=== PATIENT | female | born 1985 | race Caucasian/White ===

== ENCOUNTER 2016-08-30 21:52 | Emergency (ER) | payer OTHER ==
[2016-08-30] MEDS ORDERED: Albuterol 2.5 MG/3 ML NEB.SOL* (0.083%) INH ONE (22:08)
[2016-08-30] MEDS ORDERED: Ipratropium 0.5MG/2.5ML NEB* 0.5 MG/2.5 ML NEB.SOLN INH ONE (22:08)
[2016-08-30 22:26] VITALS: BP 144/70
[2016-08-30] MEDS ORDERED: predniSONE TAB* 20 MG PO ONE (23:25)
[2016-08-30] MEDS ORDERED: Amoxicillin/Clavulanate TAB* 875 MG PO ONE (23:26)
[2016-08-30] MEDS ORDERED: guaiFENesin/CODIEN 100MG-10MG* 5 ML UDC PO ONE (23:29)
--- NOTE | 2016-10-01 14:34 | UC ---
I, Taqueria,Sovel, scribed for Ally Taylor DO on 08/30/16 at 2319 . Cardiac HPI - HPI Summary HPI Summary: This 31 y/o female presents to ED for CP since 1 week ago. Pt also reports dyspnea, BERTRAND, cough, sinus congestion, rhinorrhea, sore throat, and chills. Negative abd pain, dysuria, or any other urinary symptoms. Cough makes the chest pain worse. Nebulizer treatment in [facility] made the CP better. Pt has not controlled her symptoms with any OTC symptoms. PMHx includes appy, ADHD, and . Pt is adopted and does not know her FHx. - History of Current Complaint Chief Complaint: UCRespiratory Stated Complaint: RESPIRATORY C/O Time Seen by Provider: 08/30/16 22:02 Hx Obtained From: Patient, Medical Records Onset/Duration: Lasting Weeks - 1 week ago, Still Present Initial Severity: Moderate Current Severity: Moderate Chest Pain Location: Diffuse Character: Tightness Aggravating: Deep Breaths Alleviating: Medication - albuterol, Upright Associated Signs & Symptoms: Positive: Chest Pain, Headaches, SOB, Cough - Risk Factors Pulmonary Embolism Risk Factors: Smoking Cardiac Risk Factors: Smoking AMI/ACS Risk Factors: Smoking - Allergy/Home Medications Allergies/Adverse Reactions: Allergies Allergy/AdvReac Type Severity Reaction Status Date / Time No Known Allergies Allergy Verified 08/30/16 22:20 PMH/Surg Hx/FS Hx/Imm Hx Previously Healthy: Yes Endocrine History Of: Denies: Thyroid Disease Cardiovascular History Of: Denies: Pacemaker/ICD, Congestive Heart Failure Respiratory History Of: Denies: COPD, Asthma GI/ History Of: Denies: Gastroesophageal Reflux, Ulcer, Renal Disease Neurological History Of: Denies: CVA, Dementia, Seizures Other History Of: Negative For: Anticoagulant Therapy - Surgical History Surgical History: Yes Surgery Procedure, Year, and Place: Appendectomy - Family History Known Family History: Positive: Unknown - Pt is adopted - Social History Alcohol Use: None Substance Use Type: None Smoking Status (MU): Light Every Day Tobacco Smoker Type: Cigarettes Amount Used/How Often: 1 pack every 3 days Length of Time of Smoking/Using Tobacco: started at age 15 Have You Smoked in the Last Year: Yes Household Exposure Type: Cigarettes Cessation Counseling: Patient Advised to Stop - Immunization History Most Recent Influenza Vaccination: 04/01/15 Most Recent Tetanus Shot: 07/01/15 Most Recent Pneumonia Vaccination: never Review of Systems Constitutional: Chills Skin: Negative Eyes: Negative ENT: Sore Throat, Nasal Discharge, Other - sinus congestion Respiratory: Shortness Of Breath, Cough Cardiovascular: Chest Pain Gastrointestinal: Negative Genitourinary: Negative Motor: Negative Neurovascular: Negative Musculoskeletal: Negative Neurological: Headache Psychological: Negative All Other Systems Reviewed And Are Negative: Yes Physical Exam Triage Information Reviewed: Yes Appearance: Well-Appearing, No Pain Distress, Well-Nourished Vital Signs: Initial Vital Signs Temp 99 F 08/30/16 22:21 Pulse 78 08/30/16 22:21 Resp 18 08/30/16 22:21 BP 144/70 08/30/16 22:21 Pulse Ox 99 08/30/16 22:21 Vital Signs Reviewed: Yes Eyes: Positive: Conjunctiva Clear. Negative: Discharge ENT: Positive: Hearing grossly normal, Pharynx normal, Nasal congestion, Nasal drainage, TMs normal. Negative: Tonsillar swelling, Muffled/hoarse voice Dental: Positive: Percussion Tenderness @ - right maxillary Neck: Positive: Supple, Nontender Respiratory: Positive: No respiratory distress, No accessory muscle use, Other: - Moderate wheezing Cardiovascular: Positive: RRR, No Murmur Musculoskeletal: Positive: Strength Intact Neurological: Positive: Alert, Muscle Tone Normal Psychological: Positive: Age Appropriate Behavior Skin Exam: Normal, Other - Warm, dry, color nml Re-Evaluation - Re-Evaluation First Eval Re-Evaluation Time: 23:30 Comment: Scattered wheezing at re-evaluation. - Clinical Impression Provider Diagnoses: sinusitis and bronchitis Discharge - Discharge Plan Condition: Stable Disposition: HOME Prescriptions: Albuterol HFA INHALER* [Ventolin HFA Inhaler*] 2 puff INH Q4H PRN #1 mdi PRN Reason: Sob/Wheezing Amoxicillin/Clavulanate TAB* [Augmentin TAB 875*] 875 mg PO BID #19 tab guaiFENesin ER TAB [Mucinex*] 600 mg PO BID PRN #1 box PRN Reason: Cough guaiFENesin/CODIEN 100MG-10MG* [Robitussin AC 100Mg-10Mg*] 5 - 10 ml PO BEDTIME PRN #100 udc MDD 10ml PRN Reason: Cough predniSONE TAB* [Deltasone TAB*] 40 mg PO DAILY #8 tab Patient Education Materials: Acute Bronchitis (ED), Sinusitis (ED) Forms: *Work Release Referrals: Sravanthi Siu MD [Primary Care Provider] - If Needed Additional Instructions: TRY USING THE NETTI POT IN THE MORNINGS DISCUSSED. YOU MUST ALWAYS USE CLEAN WATER. REMEMBER, POSTURE IS AN IMPORTANT FACTOR IN SINUS DRAINAGE. MOVE YOUR NECK, BREATHE. INHALED BRONCHODILATORS: You have received a prescription for an inhaled bronchodilator -- a medication which stimulates the airways in the lung to dilate. This improves the flow of air in asthma, bronchitis, and emphysema. These medicines have some similarity to adrenaline, and can cause similar side effects: shakiness, racing heart, and a sense of nervousness. These side effects decrease with time. Contact your doctor if these side effects are severe. Do not over-use the medicine. Too-frequent use of the inhaler may make it ineffective. Call your doctor if the inhaler is not controlling your symptoms at the prescribed doses. COUGH-SUPPRESSANT & EXPECTORANT MEDICATION: You are to use a cough medication as needed for relief of symptoms. This medicine is a combination of an expectorant (to make the mucous thinner and more easily "coughed up") and a cough suppressant (to reduce the frequency of coughing). The cough-suppressant medicine is related to narcotics. You may experience mild nausea and sleepiness. Some patients who are very sensitive to narcotics may have stomach pain from this medicine. Taking the medicine with food reduces these side effects. Do not drive or work with machinery until you know how this medicine affects you. The expectorant should have no side effects. Iodine-containing expectorants (such as organidin) should not be taken by persons with active thyroid disease unless approved by your doctor. Call the doctor if you develop shortness of breath, hives, rash, itching, lightheadedness, or severe nausea and vomiting. EXPECTORANT MEDICATION: An expectorant medicine has been prescribed. This type of drug makes mucous thinner, helping the sinuses, nose, and bronchial tubes to remain free of pus and mucous. Expectorants make a cough less severe and more comfortable, and help infected sinuses drain. In general, antihistamines defeat the purpose of the expectorant by making mucous thicker. They should be avoided unless specifically recommended by your physician. CORTICOID MEDICATION: You have been given a medicine of the cortisone class. This medication is used to control inflammation or allergy. It is usually only given for a short period of time, until the acute process subsides. There are usually no side effects from short-term use of cortisone-like medications. Some persons feel an increased sense of well-being and are not sleepy at bedtime. Long-term use of cortisone medications is best avoided, unless required for a severe condition. If your condition does not remit, or relapses after the course of corticosteroid medication, you should consult your physician. Contact the physician if you develop lightheadedness, black or tarry stools , swelling of the legs, or significant rapid change in weight. AUGMENTIN: Augmentin is a mixture of amoxicillin and clavulanate. Amoxicillin is a member of the penicillin family. It covers the germs likely to cause ear, bronchial, and urinary infections better than plain penicillin. The addition of clavulanate allows it to cover staph infections of the skin, as well as resistant cases of ear and sinus infections. Your physician has chosen Augmentin for you because of the special nature of your situation. Augmentin is best taken with meals. Nausea after taking the medication is rare, but can occur. Diarrhea can occur, particularly in small children. Vaginal yeast infections, and oral thrush in infants are also common. Contact your physician if these problems occur. Allergy to penicillins is common. If you have had an allergic reaction to any drug of the penicillin family, you should never take any other penicillin. Notify your doctor at once if you develop hives, shortness of breath, swelling, or faintness. ANY TIME YOU TAKE AN ANTIBIOTIC, IT IS IMPORTANT TO REPLENISH THE BODY'S BALANCE OF "GOOD" BACTERIA BY EATING HIGH QUALITY CULTURED FOOD SUCH YOGURT, SAURKRAUT OR VAZQUEZ CHI AND/OR TAKING A PROBIOTIC SUPPLEMENT. The documentation as recorded by the Taqueria hussein Soohyun accurately reflects the service I personally performed and the decisions made by , Ally Taylor DO.
== END 2016-08-30 23:50 | disposition home or self-care (01) ==
LOC: UCEAST 21:52
DX: J32.9 Chronic sinusitis, unspecified (principal); J40 Bronchitis, not specified as acute or chronic; F17.210 Nicotine dependence, cigarettes, uncomplicated
CPT/HCPCS: 99213; A9270-GY; G0463; J7512; J7644

== ENCOUNTER 2017-02-24 21:20 | Emergency (ER) | payer OTHER ==
[2017-02-24 21:26] VITALS: BP 139/72
--- NOTE | 2017-02-24 21:35 | UC ---
Lower Extremity/Ankle HPI - HPI Summary HPI Summary: 31 YEAR OLD FEMALE PRESENTS WITH COMPLAINS OF RIGHT ANKLE PAIN SECONDARY TO BLUNT TRAUMA. - History of Current Complaint Chief Complaint: UCLowerExtremity Stated Complaint: ANKLE INJ Time Seen by Provider: 02/24/17 21:28 Hx Obtained From: Patient Hx Last Menstrual Period: 1 WEEK AGO Onset/Duration: Sudden Onset Severity Initially: Severe Severity Currently: Severe Pain Scale Used: 0-10 Numeric - 8 Aggravating Factor(s): Standing Alleviating Factor(s): Rest, Elevation - Allergies/Home Medications Allergies/Adverse Reactions: Allergies Allergy/AdvReac Type Severity Reaction Status Date / Time No Known Allergies Allergy Verified 02/24/17 21:26 PMH/Surg Hx/FS Hx/Imm Hx Previously Healthy: Yes Other History Of: Negative For: Anticoagulant Therapy - Surgical History Surgical History: Yes Surgery Procedure, Year, and Place: Appendectomy, DENTAL EXTRACTIONS - Family History Known Family History: Positive: Unknown - Pt is adopted, Cardiac Disease, Hypertension - Social History Alcohol Use: None Substance Use Type: None Smoking Status (MU): Current Every Day Smoker Type: Cigarettes Amount Used/How Often: 1 pack every 3 days Length of Time of Smoking/Using Tobacco: started at age 15 Have You Smoked in the Last Year: Yes Household Exposure Type: Cigarettes - Immunization History Most Recent Influenza Vaccination: 04/01/15 Most Recent Tetanus Shot: 07/01/15 Most Recent Pneumonia Vaccination: never Review of Systems Constitutional: Negative Skin: Negative Eyes: Negative ENT: Negative Respiratory: Negative Cardiovascular: Negative Gastrointestinal: Negative Genitourinary: Negative Motor: Negative Neurovascular: Negative Musculoskeletal: Myalgia - RIGHT ANKLE PAIN, Other: Neurological: Negative Psychological: Negative All Other Systems Reviewed And Are Negative: Yes Physical Exam Triage Information Reviewed: Yes Vital Signs: Initial Vital Signs Temp 36.8 C 02/24/17 21:22 Pulse 74 02/24/17 21:22 Resp 16 02/24/17 21:22 BP 139/72 02/24/17 21:22 Pulse Ox 100 02/24/17 21:22 Eye Exam: Normal ENT Exam: Normal Dental Exam: Normal Neck exam: Normal Neck: Positive: 1 Respiratory Exam: Normal Cardiovascular Exam: Normal Abdominal Exam: Normal Musculoskeletal: Positive: Other: - RIGHT ANKLE PAIN Neurological Exam: Normal Psychological Exam: Normal Skin Exam: Normal Lower Extremity Course/Dx - Differential Dx/Diagnosis Provider Diagnoses: RIGHT ANKLE PAIN Discharge - Discharge Plan Condition: Stable Disposition: HOME Prescriptions: Meloxicam [Mobic] 7.5 mg PO BID PC #30 tab Patient Education Materials: Ankle Sprain (ED) Referrals: Sravanthi Siu MD [Primary Care Provider] - If Needed Elliot Patterson MD [Medical Doctor] -
--- NOTE | 2017-02-24 21:59 | RAD ---
INDICATION: Right ankle injury. TECHNIQUE: 3 views of the right ankle were obtained. FINDINGS: The bones are in normal alignment. No fracture is seen. Joint spaces appear maintained. IMPRESSION: NO EVIDENCE FOR FRACTURE.
== END 2017-02-24 22:06 | disposition home or self-care (01) ==
LOC: UCEAST 21:20
DX: M25.571 Pain in right ankle and joints of right foot (principal); F17.210 Nicotine dependence, cigarettes, uncomplicated
CPT/HCPCS: 99213; G0463

== ENCOUNTER 2017-08-10 10:49 | Emergency (ER) | payer OTHER ==
[2017-08-10 11:24] VITALS: BP 132/61
--- NOTE | 2017-08-10 12:05 | UC ---
Hand/Wrist HPI - HPI Summary HPI Summary: ACCIDENTALLY CLOSED RIGHT 3RD FINGER IN A DOOR A WEEK AGO. SINCE THEN HAS DEVELOPED PAIN, REDNESS, SWELLING AND DRAINAGE. STUCK A PIN IT IN 4 DAYS AGO AND SOME PUS CAME OUT BUT PT STATES IT LOOKS WORSE NOW. NO FEVER. - History Of Current Complaint Chief Complaint: UCUpperExtremity Stated Complaint: FINGER INJURY Time Seen by Provider: 08/10/17 11:49 Hx Obtained From: Patient Hx Last Menstrual Period: 07/07/18 Onset/Duration: Sudden Onset, Lasting Days, Still Present Severity Initially: Moderate Severity Currently: Moderate Pain Intensity: 4 Pain Scale Used: 0-10 Numeric Character Of Pain: Sharp, Aching Aggravating Factor(s): Movement Alleviating Factor(s): Ice Associated Signs And Symptoms: Positive: Swelling, Redness Related History: Dominant Hand Right - Allergies/Home Medications Allergies/Adverse Reactions: Allergies Allergy/AdvReac Type Severity Reaction Status Date / Time No Known Allergies Allergy Verified 08/10/17 11:24 PMH/Surg Hx/FS Hx/Imm Hx Previously Healthy: Yes Other History Of: Negative For: Anticoagulant Therapy - Surgical History Surgical History: Yes Surgery Procedure, Year, and Place: Appendectomy, DENTAL EXTRACTIONS - Family History Known Family History: Positive: Unknown - Pt is adopted - Social History Alcohol Use: None Substance Use Type: None Smoking Status (MU): Light Every Day Tobacco Smoker Type: Cigarettes Amount Used/How Often: 1 pack every 3 days Length of Time of Smoking/Using Tobacco: started at age 15 Have You Smoked in the Last Year: Yes Household Exposure Type: Cigarettes - Immunization History Most Recent Influenza Vaccination: 04/01/15 Most Recent Tetanus Shot: 07/01/15 Most Recent Pneumonia Vaccination: never Review of Systems Constitutional: Negative Skin: Other - SWELLING, ERYTHEMA Respiratory: Negative Cardiovascular: Negative Gastrointestinal: Negative Musculoskeletal: Decreased ROM, Edema All Other Systems Reviewed And Are Negative: Yes Physical Exam Triage Information Reviewed: Yes Appearance: Well-Appearing, No Pain Distress, Well-Nourished Vital Signs: Initial Vital Signs Temp 97.9 F 08/10/17 11:20 Pulse 79 08/10/17 11:20 Resp 16 08/10/17 11:20 BP 132/61 08/10/17 11:20 Pulse Ox 100 08/10/17 11:20 Vital Signs Reviewed: Yes Eyes: Positive: Conjunctiva Clear ENT: Positive: Hearing grossly normal Neck: Positive: Supple Respiratory: Positive: No respiratory distress, No accessory muscle use Cardiovascular: Positive: Pulses Normal Abdomen Description: Positive: Soft Musculoskeletal: Positive: ROM Limited @ - RIGHT 3RD FINGER, Edema @ - RIGHT 3RD FINGER DISTALLY Neurological: Positive: Alert Psychological: Positive: Age Appropriate Behavior Skin: Positive: Other - ERYTHEMA, CRUSTED DRAINAGE AROUND NAILBED RIGHT 3RD FINGER Procedures - Incision and Drainage Site: RIGHT 3RD FINGER Instrument(s): Needle - 18 GAUGE Diagnostics - Radiology RIGHT 4TH FINGER XRAY Xray Interpretation: No Acute Changes Radiology Interpretation Completed By: Radiologist Hand/Wrist Course/Dx - Course Course Of Treatment: 18 GAUGE USED TO OPEN PARONYCHIA. NO PUS. ADVISED HOT SOAKS AND ABX. XRAY NEGATIVE. - Differential Dx/Diagnosis Provider Diagnoses: PARONYCHIA RIGHT 3RD FINGER Discharge - Discharge Plan Condition: Stable Disposition: HOME Prescriptions: Cephalexin CAP* [Keflex 500 CAP*] 1,000 mg PO BID #40 cap Patient Education Materials: Paronychia (ED) Referrals: Sravanthi Siu MD [Primary Care Provider] - If Needed Additional Instructions: XRAYS NEGATIVE FOR BONY INJURY. WARM/HOT COMPRESSES/SOAKS AT LEAST 4 TIMES DAILY. TAKE THE ANTIBIOTICS DAILY FOR THE FULL 10 DAYS. SEEK FOLLOW-UP IF YOU ARE NOT IMPROVING EXPECTED OVER THE NEXT FEW DAYS.
--- NOTE | 2017-08-10 12:39 | RAD ---
INDICATION: Right fourth digit injury COMPARISON: None TECHNIQUE: AP, lateral, and oblique views were obtained. FINDINGS: There is no acute fracture or dislocation. There is soft tissue swelling about the nailbed. IMPRESSION: NO ACUTE FRACTURE.
== END 2017-08-10 12:45 | disposition home or self-care (01) ==
LOC: UCEAST 10:49
DX: L03.011 Cellulitis of right finger (principal); F17.210 Nicotine dependence, cigarettes, uncomplicated
CPT/HCPCS: 73140; 99212; G0463

== ENCOUNTER 2017-10-20 18:33 | Emergency (ER) | payer OTHER ==
[2017-10-20 19:33] VITALS: BP 130/83
--- NOTE | 2017-10-20 19:40 | UC ---
UC General HPI - HPI Summary HPI Summary: 22 yo WF , 20 weeks GA c/o black tarry stools associated with epigastric pain since this AM, took pepto bismol x 1 dose AFTER the black tarry stool started. Complains that she goes right after eating anything. Denies f/c/n/v or taking pepto last night or extra iron tablets, has her 1st appt tomorrow. - History of Current Complaint Chief Complaint: UCGI Stated Complaint: BLACK STOOLS Time Seen by Provider: 10/20/17 18:34 Hx Obtained From: Patient Hx Last Menstrual Period: 09/02/17 Onset/Duration: Sudden Onset Onset Severity: Moderate Current Severity: Moderate Pain Intensity: 2 - Allergy/Home Medications Allergies/Adverse Reactions: Allergies Allergy/AdvReac Type Severity Reaction Status Date / Time No Known Allergies Allergy Verified 10/20/17 18:57 Home Medications: Home Medications Bismuth Subsalicylate [Pepto-Bismol Max Strength] 525 mg PO 10/20/17 [History] PMH/Surg Hx/FS Hx/Imm Hx Previously Healthy: Yes Other History Of: Negative For: Anticoagulant Therapy - Surgical History Surgical History: Yes Surgery Procedure, Year, and Place: Appendectomy, DENTAL EXTRACTIONS - Family History Known Family History: Positive: Unknown - Pt is adopted - Social History Alcohol Use: None Substance Use Type: None Smoking Status (MU): Light Every Day Tobacco Smoker Type: Cigarettes Amount Used/How Often: 1 pack every 3 days Length of Time of Smoking/Using Tobacco: started at age 15 Have You Smoked in the Last Year: Yes Household Exposure Type: Cigarettes - Immunization History Most Recent Influenza Vaccination: 04/01/15 Most Recent Tetanus Shot: 07/01/15 Most Recent Pneumonia Vaccination: never Review of Systems Constitutional: Negative Skin: Negative Eyes: Negative ENT: Negative Respiratory: Negative Cardiovascular: Negative Gastrointestinal: Diarrhea - Black tarry stools Genitourinary: Negative Motor: Negative Neurovascular: Negative Musculoskeletal: Negative Neurological: Negative Psychological: Negative All Other Systems Reviewed And Are Negative: Yes Physical Exam Triage Information Reviewed: Yes Appearance: No Pain Distress Vital Signs: Initial Vital Signs Temp 36.8 C 10/20/17 18:54 Pulse 96 10/20/17 18:54 Resp 18 10/20/17 18:54 BP 115/78 10/20/17 18:54 Pulse Ox 100 10/20/17 18:54 Eye Exam: Normal ENT Exam: Normal Dental Exam: Normal Neck exam: Normal Neck: Positive: 1 Respiratory Exam: Normal Cardiovascular Exam: Normal Abdomen Description: Positive: Other: - Gravid abd, mild epigastric tenderness. Negative: Guarding Musculoskeletal Exam: Normal Neurological Exam: Normal Psychological Exam: Normal Skin Exam: Normal Course/Dx - Course Course Of Treatment: Mildly tachycardic at 96, 92, advised pt to go to ED for r/ o UGIB in a pt - Differential Dx - Multi-Symptom Provider Diagnoses: Black tarry stools. diarrhea Discharge - Sign-Out/Discharge Documenting (check all that apply): Discharge - Discharge Plan Condition: Stable Disposition: HOME Patient Education Materials: Acute Diarrhea (ED) Referrals: Sravanthi Siu MD [Primary Care Provider] - Additional Instructions: PLEASE GO TO ER TO WORKUP FOR ACUTE BLACK TARRY STOOLS - Billing Disposition and Condition Condition: STABLE Disposition: HOME
== END 2017-10-20 19:36 | disposition home or self-care (01) ==
LOC: UCEAST 18:33
DX: K92.1 Melena (principal); R19.7 Diarrhea, unspecified; F17.210 Nicotine dependence, cigarettes, uncomplicated
CPT/HCPCS: 99211; G0463

== ENCOUNTER 2017-10-20 19:52 | Emergency (ER) | payer OTHER ==
[2017-10-20 21:11] LABS: ABS Basophils 0.1 10^3/ul (0-0.2); ABS Eosinophils 0.2 10^3/ul (0-0.6); ABS Monocytes 0.6 10^3/ul (0-0.8); ABS Neutrophils 5.7 10^3/ul (1.5-7.7); ABS Nucleated RBC 0 10^3/ul; Eosinophil % 2.3 % (0-6); Hematocrit 42 % (35-47); Hemoglobin 14.6 g/dl (12.0-16.0); Lymphocyte % 23.4 % (25-47); Mean Corpuscular HGB Conc 35 g/dl (31-36); Mean Corpuscular Hemoglobin 29 pg (27-31); Mean Corpuscular Volume 84 fL (80-97); Mean Platelet Volume 7.6 um3 (7.4-10.4); Nucleated Red Blood Cells % 0.1; Platelet Count 204 10^3/ul (150-450); Red Blood Count 5.01 10^6/ul (4.0-5.4); Red Cell Distribution Width 13 % (10.5-15); White Blood Count 8.5 10^3/ul (3.5-10.8)
[2017-10-20 21:19] LABS: INR 0.98 (0.77-1.02)
[2017-10-20 22:20] VITALS: BP 111/52
--- NOTE | 2017-10-21 01:13 | ED ---
Lala Guidry Nilda, scribed for Mikaela Gilbert MD on 10/20/17 at 2053 . GI/ HPI - HPI Summary HPI Summary: This patient is a 32 year old F presenting to [facility] from [facility] with a chief complaint of constant black watery stools today. The patient rates the pain 0/ 10 in severity. Symptoms aggravated and alleviated by nothing. Patient denies N /V, vaginal bleeding, and dizziness. Pt states she does not take iron vitamins. Pt states shes 2 month which she verified with home test. She notes she will see Dr. Madison tomorrow for evaluation. /A4 ( all miscarriages). - History of Current Complaint Chief Complaint: EDGeneral Time Seen by Provider: 10/20/17 20:38 Stated Complaint: PALPITATIONS Hx Obtained From: Patient Hx Last Menstrual Period: 09/02/17 Onset/Duration: Started Hours Ago, Still Present Timing: Constant, Lasting Hours Pain Intensity: 0 Location of Pain: None Associated Signs and Symptoms: Positive: Other: - black watery stools; denies N/ V, vaginal bleeding, and dizziness Aggravating Factor(s): Nothing Alleviating Factor(s): Nothing - Allergy/Home Medications Allergies/Adverse Reactions: Allergies Allergy/AdvReac Type Severity Reaction Status Date / Time No Known Allergies Allergy Verified 10/20/17 19:58 Home Medications: Home Medications NK [No Home Medications Reported] 10/20/17 [History Confirmed 10/20/17] PMH/Surg Hx/FS Hx/Imm Hx Endocrine/Hematology History: Denies: Hx Anticoagulant Therapy, Hx Diabetes, Hx Thyroid Disease Cardiovascular History: Denies: Hx Congestive Heart Failure, Hx Hypertension, Hx Pacemaker/ICD Respiratory History: Denies: Hx Asthma, Hx Chronic Obstructive Pulmonary Disease (COPD) GI History: Denies: Hx Ulcer History: Denies: Hx Renal Disease Neurological History: Reports: Other Neuro Impairments/Disorders - adhd Denies: Hx Dementia, Hx Seizures Psychiatric History: Denies: Hx Substance Abuse - Surgical History Surgery Procedure, Year, and Place: Appendectomy, DENTAL EXTRACTIONS Infectious Disease History: No Infectious Disease History: Denies: Hx Hepatitis, Hx Human Immunodeficiency Virus (HIV), Hx of Known/ Suspected MRSA, History Other Infectious Disease, Traveled Outside the [place] in Last 30 Days - Family History Known Family History: Positive: Unknown - Pt is adopted - Social History Alcohol Use: None Substance Use Type: Reports: None Smoking Status (MU): Light Every Day Tobacco Smoker Type: Cigarettes Amount Used/How Often: 1 pack every 3 days Length of Time of Smoking/Using Tobacco: started at age 15 Have You Smoked in the Last Year: Yes Review of Systems Positive: Diarrhea - black . Negative: Abdominal Pain, Vomiting, Nausea Positive: other - negative vaginal bleeding Neurological: Other - negative dizziness All Other Systems Reviewed And Are Negative: Yes Physical Exam - Summary Physical Exam Summary: VITAL SIGNS: Reviewed. GENERAL: Patient is a well-developed and nourished female who is lying comfortable in the stretcher. Patient is not in any acute respiratory distress. HEAD AND FACE: No signs of trauma. No ecchymosis, hematomas or skull depressions. No sinus tenderness. EYES: PERRLA, EOMI x 2, No injected conjunctiva, no nystagmus. EARS: Hearing grossly intact. Ear canals and tympanic membranes are within normal limits. MOUTH: Oropharynx within normal limits. NECK: Supple, trachea is midline, no adenopathy, no JVD, no carotid bruit, no c- spine tenderness, neck with full ROM. CHEST: Symmetric, no tenderness at palpation LUNGS: Clear to auscultation bilaterally. No wheezing or crackles. CVS: Regular rate and rhythm, S1 and S2 present, no murmurs or gallops appreciated. ABDOMEN: Soft, non-tender. No signs of distention. No rebound no guarding, and no masses palpated. Bowel sounds are hyperactive. Rectal exam (nurse Cinthya present) showed small non-bleeding external hemorrhoids with no masses. Pt has what seems to be liquid black stool sent to lab for occult blood. EXTREMITIES: FROM in all major joints, no edema, no cyanosis or clubbing. NEURO: Alert and oriented x 3. No acute neurological deficits. Speech is normal and follows commands. SKIN: Dry and warm Triage Information Reviewed: Yes Vital Signs On Initial Exam: Initial Vitals Temp Pulse Resp BP Pulse Ox 97.3 F 96 18 137/84 100 10/20/17 19:54 10/20/17 19:54 10/20/17 19:54 10/20/17 19:54 10/20/17 19:54 Vital Signs Reviewed: Yes Diagnostics - Vital Signs Vital Signs Temp Pulse Resp BP Pulse Ox 10/20/17 20:35 87 15 122/67 98 10/20/17 20:32 88 14 99 10/20/17 19:54 97.3 F 96 18 137/84 100 - Laboratory Lab Results: Lab Results 10/20/17 10/20/17 10/20/17 Range/Units 21:00 21:00 21:00 WBC 8.5 (3.5-10.8) 10^3/ul RBC 5.01 (4.0-5.4) 10^6/ul Hgb 14.6 (12.0-16.0) g/dl Hct 42 (35-47) % MCV 84 (80-97) fL MCH 29 (27-31) pg MCHC 35 (31-36) g/dl RDW 13 (10.5-15) % Plt Count 204 (150-450) 10^3/ul MPV 7.6 (7.4-10.4) um3 Neut % (Auto) 66.7 (38-83) % Lymph % (Auto) 23.4 L (25-47) % [place] % (Auto) 6.9 (0-7) % Eos % (Auto) 2.3 (0-6) % Baso % (Auto) 0.7 (0-2) % Absolute Neuts (auto) 5.7 (1.5-7.7) 10^3/ul Absolute Lymphs (auto) 2.0 (1.0-4.8) 10^3/ul Absolute Monos (auto) 0.6 (0-0.8) 10^3/ul Absolute Eos (auto) 0.2 (0-0.6) 10^3/ul Absolute Basos (auto) 0.1 (0-0.2) 10^3/ul Absolute Nucleated RBC 0 10^3/ul Nucleated RBC % 0.1 INR (Anticoag Therapy) 0.98 (0.77-1.02) APTT 35.2 (26.0-36.3) seconds Sodium 136 L (139-145) mmol/L Potassium 3.9 (3.5-5.0) mmol/L Chloride 106 (101-111) mmol/L Carbon Dioxide 25 (22-32) mmol/L Anion Gap 5 (2-11) mmol/L BUN 7 (6-24) mg/dL Creatinine 0.62 (0.51-0.95) mg/dL Est GFR ( Amer) 145.4 (>60) Est GFR (Non-Af Amer) 113.0 (>60) BUN/Creatinine Ratio 11.3 (8-20) Glucose 87 (70-100) mg/dL Calcium 9.5 (8.6-10.3) mg/dL Total Bilirubin 0.40 (0.2-1.0) mg/dL AST 14 (13-39) U/L ALT 22 (7-52) U/L Alkaline Phosphatase 110 H (34-104) U/L C-Reactive Protein 4.07 (< 5.00) mg/L Total Protein 7.3 (6.4-8.9) g/dL Albumin 4.3 (3.2-5.2) g/dL Globulin 3.0 (2-4) g/dL Albumin/Globulin Ratio 1.4 (1-3) Lipase < 10 L (11.0-82.0) U/L Result Diagrams: 10/20/17 21:00 10/20/17 21:00 Lab Statement: Any lab studies that have been ordered have been reviewed, and results considered in the medical decision making process. GIGU Course/Dx - Course Assessment/Plan: Pt is 32 y/o and is 8 weeks c/o diarrhea. Occult stool negative for blood. Unremarkable labs. Unremarkable exam. Pt D/C with Dx Diarrhea and f/u with OB and PCP. - Diagnoses Provider Diagnoses: Diarrhea Discharge - Sign-Out/Discharge Documenting (check all that apply): Discharge - home - Discharge Plan Condition: Stable Disposition: HOME Patient Education Materials: Acute Diarrhea (ED) Referrals: Sravanthi Siu MD [Primary Care Provider] - 3 Days Additional Instructions: Follow up with OB. RETURN TO THE EMERGENCY DEPARTMENT FOR CHANGING OR WORSENING SYMPTOMS. - Billing Disposition and Condition Condition: STABLE Disposition: HOME The documentation as recorded by the Lala hussein Nilda accurately reflects the service I personally performed and the decisions made by Vladimir ac Abdul, MD.
== END 2017-10-20 22:24 | disposition home or self-care (01) ==
LOC: ED 19:52
DX: R19.7 Diarrhea, unspecified (principal); F17.210 Nicotine dependence, cigarettes, uncomplicated
CPT/HCPCS: 36415; 80053; 82270; 83690; 85025; 85610; 85730; 86140; 96374; 99283

== ENCOUNTER 2018-06-06 13:47 | Inpatient (IN) | payer OTHER ==
[2018-06-06] MEDS ORDERED: Nalbuphine* 10 MG/ML 1 ML VIAL IM ONE (14:51)
[2018-06-06] MEDS ORDERED: Promethazine INJ(RESTRICTED)* 25 MG/ML 1 ML VIAL IM ONE (14:51)
[2018-06-06] MEDS ORDERED: Nicotine Inhaler* 10 MG AMP INH PRN (14:58)
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
[2018-06-06] MEDS ORDERED: Mouth Piece, Nicotine* 1 EACH CARTRIDGE ONE (15:53)
--- NOTE | 2018-06-06 20:13 | PN ---
Progress Note - Progress Note Date of Service: 06/06/18 SOAP: Subjective: [Pt reports few contractions, denies LOF, + bloody show, +FM. Desires IOL with pitocin] Objective: [BP: 124/77, P:89, T:97.4 Cervix: 4/80/-1 FHT: 120 bpm, +accels, -decels, moderate variability] Assessment: [33 y.o. [id number], FT Induction of labor] Plan: [1) CBC, type and screen 2) Pitocin low dose 3) Anticipate vaginal delivery]
[2018-06-06 20:24] LABS: ABS Basophils 0.1 10^3/ul (0-0.2); ABS Eosinophils 0.1 10^3/ul (0-0.6); ABS Lymphocytes 3.2 10^3/ul (1.0-4.8); ABS Monocytes 0.8 10^3/ul (0-0.8); ABS Neutrophils 10.3 10^3/ul (1.5-7.7); ABS Nucleated RBC 0 10^3/ul; Eosinophil % 0.8 %; Hematocrit 39 % (35-47); Hemoglobin 13.5 g/dl (12.0-16.0); Lymphocyte % 22.3 %; Mean Corpuscular HGB Conc 35 g/dl (31-36); Mean Corpuscular Hemoglobin 29 pg (27-31); Mean Corpuscular Volume 84 fL (80-97); Mean Platelet Volume 8.1 fL (7.4-10.4); Nucleated Red Blood Cells % 0.1; Platelet Count 206 10^3/ul (150-450); Red Blood Count 4.68 10^6/ul (4.00-5.40); Red Cell Distribution Width 13 % (10.5-15); White Blood Count 14.6 10^3/ul (3.5-10.8)
[2018-06-06] MEDS ORDERED: Oxytocin in LR* 20 UNITS/1,000 ML BAG IVPB SCH (21:00)
--- NOTE | 2018-06-06 23:24 | PN ---
Progress Note - Progress Note Date of Service: 06/06/18 SOAP: Subjective: [Pt reports contractions increasing in intensity, pt requests nitrous] Objective: [T: 97.4, R:16, BP: 132/77, P:78 FHT: 125 bpm, +accels, -decels, moderate variability cervix: 5c,/90%/0 Pitocin at 5mu] Assessment: [33 y.o. , FT, labor] Plan: [1) nitrous 2) Anticipate vaginal delivery]
[2018-06-07] MEDS ORDERED: Lidocaine 2% VISCOUS* 15 ML UDC ONE (00:05)
[2018-06-07] MEDS ORDERED: Witch Hazel PAD* JAR TOPICAL PRN (01:08)
[2018-06-07] MEDS ORDERED: Dibucaine 1% 28.35 GM TUBE PR PRN (01:08)
[2018-06-07] MEDS ORDERED: Acetaminophen TAB* 325 MG PO PRN (01:08)
[2018-06-07] MEDS ORDERED: Glycerin ADULT SUPP PR PRN (01:08)
--- NOTE | 2018-06-07 01:10 | PROCNOTE ---
[facility] OB: Delivery Note - Delivery A Date of : 06/07/18 Time of : 00:49 Sex: Male Score 1 Minute: 9 Score 5 Minutes: 9 Gestational Age in Weeks and Days at Delivery: 39 Weeks and 5 Days Delivery Method: Spontaneous Vaginal Labor: Induced Did Patient attempt ?: N/A, No Previous Amniotic Fluid: Bloody Estimated Blood Loss: 150 Anesthesia/Analgesia: Nitrous-Labor Delivered By: Brenda Odell - Nursery Level of Nursery: Regular/Bedside - Perineum Perineal Injury: None/Intact - Events Delivery Events of Note: Pitocin During Labor
[2018-06-07] MEDS: Ibuprofen TAB* 600 MG PO PRN ×2 (04:07→10:22)
[2018-06-07] MEDS ORDERED: Simethicone TAB* 80 MG TAB.CHEW PO SCH (08:30)
[2018-06-07] MEDS: Docusate CAP* 100 MG PO SCH ×3 (10:22→21:58)
[2018-06-07 19:32] VITALS: BP 130/70
[2018-06-08] MEDS ORDERED: Ferrous Gluconate TAB* 324 MG TAB PO SCH (09:00)
[2018-06-08 10:53] LABS: ABS Basophils 0.1 10^3/ul (0-0.2); ABS Eosinophils 0.1 10^3/ul (0-0.6); ABS Lymphocytes 1.6 10^3/ul (1.0-4.8); ABS Monocytes 0.5 10^3/ul (0-0.8); ABS Neutrophils 7.2 10^3/ul (1.5-7.7); ABS Nucleated RBC 0 10^3/ul; Hematocrit 38 % (35-47); Hemoglobin 12.9 g/dl (12.0-16.0); Lymphocyte % 17.1 %; Mean Corpuscular HGB Conc 34 g/dl (31-36); Mean Corpuscular Hemoglobin 29 pg (27-31); Mean Corpuscular Volume 85 fL (80-97); Mean Platelet Volume 7.9 fL (7.4-10.4); Nucleated Red Blood Cells % 0; Platelet Count 179 10^3/ul (150-450); Red Blood Count 4.44 10^6/ul (4.00-5.40); Red Cell Distribution Width 14 % (10.5-15); White Blood Count 9.4 10^3/ul (3.5-10.8)
[2018-06-08] MEDS: Docusate CAP* 100 MG PO SCH (11:39)
== END 2018-06-08 16:00 | disposition home or self-care (01) | DRG 560 ==
LOC: MCHOBOUT 13:47 → MCHOB 14:52
PROVIDERS: ADMIT Midwife; ATTEND Midwife
PROC: 10E0XZZ Delivery of Products of Conception, External Approach (ICD-10-PCS; principal; 2018-06-07)
PROC: 3E033VJ Introduction of Other Hormone into Peripheral Vein, Percutaneous Approach (ICD-10-PCS; 2018-06-07)
PROC: 10907ZC Drainage of Amniotic Fluid, Therapeutic from Products of Conception, Via Natural or Artificial Opening (ICD-10-PCS; 2018-06-07)
DX: O99.334 Smoking (tobacco) complicating childbirth (principal); Z37.0 Single live birth; F17.210 Nicotine dependence, cigarettes, uncomplicated; Z3A.39 39 weeks gestation of pregnancy
CPT/HCPCS: 36415; 85025; 86850; 86900; 86901; 88307; A9270-GY

== ENCOUNTER 2019-08-29 19:55 | Emergency (ER) | payer OTHER ==
--- OUTSIDE RECORDS SUMMARY | 2019-08-29 20:08 | XMS REPORT | Continuity of Care Document ---
:1985 External Reference #:[id number] Demographics Address [address] [place] [address] Home Phone [phone] Preferred Language en Marital Status Declined to Specify/Unknown Bahai Affiliation Unknown Race White Ethnic Group Declined to Specify/Unknown Author Name Sravanthi Siu M.D. Address [address] [address] Problems Description No Information Available Social History Type Date Description Comments Sex Unknown ETOH Use Denies alcohol use Tobacco Use Start: Unknown Light tobacco smoker (10 or fewer cigarettes/day) Smoking Status Reviewed: 06/13/19 Light tobacco smoker (10 or fewer cigarettes/day) Allergies, Adverse Reactions, Alerts Active Allergies Reaction Severity Comments Date Morphine 03/24/2013 Medications Active Medications SIG Qnty Indications Ordering Date Provider Nicotine apply one patch 28units F17.210 Sravanthi Siu, 07/18/2019 21mg/24HR topically once M.D. Patches 24HR daily Phentermine HCL 1 by mouth every 30caps E66.9 Sravanthi Siu, 07/18/2019 in the morning M.D. 37.5mg Capsules History Medications No Active Medications Unknown 07/18/2019 - 07/18/2019 No Active Medications Unknown 06/13/2019 - 06/13/2019 Chantix Continuing 1 by mouth 60tabs F17.210 Sravanthi Siu, 06/13/2019 - Month Ahsan twice a day M.D. 07/18/2019 1mg Tablets Medications Administered in Office Medication SIG Qnty Indications Ordering Provider Date Intradermal Mantoux Vignesh Cee N.Latosha 01/23/2019 Injection Immunizations CPT Code Status Date Vaccine Lot # [id number] Given 03/24/2019 MMR [id number] Vital Signs Date Vital Result Comment 08/21/2019 9:10am Height 65 inches 5'5" Weight 192.00 lb BMI (Body Mass Index) 31.9 kg/m2 07/18/2019 10:19am BP Systolic 125 mmHg BP Diastolic 65 mmHg Height 65 inches 5'5" Weight 192.00 lb BMI (Body Mass Index) 31.9 kg/m2 Heart Rate 88 /min Respiratory Rate 16 /min Results Test Acquired Date Facility Test Result H/L Range Note CBC With Diff 06/13/2019 [facility] WBC 9.0 10*3/uL (4.1-11.0) [address] (607)- - RBC 5.20 10*6/uL (4.00-5.40) HGB 15.1 g/dL (12.0-16.0) HCT 43.7 % (36.0-47.0) MCV 84.1 fL (80.0-95.0) MCH 29.0 pg (27.0-32.0) MCHC 34.5 g/dL (32.0-36.0) RDW 12.5 % (10.5-14.5) PLT 228 10*3/uL (150-450) MPV 8.7 fL (7.1-10.7) Neut % 65.3 % (35.0-75.0) Lymph % 27.0 % (16.0-52.0) [place] % 5.5 % (0.0-8.0) Eos % 1.5 % (0.0-5.0) Baso % 0.7 % (0.0-4.0) Neut # 5.9 10*3/uL (1.8-7.7) Lymph # 2.4 10*3/uL (1.2-4.8) [place] # 0.5 10*3/uL (0.0-0.8) Eos # 0.1 10*3/uL (0.0-0.5) Baso # 0.1 10*3/uL (0.0-0.2) CMP 06/13/2019 [facility] Sodium 139 mmol/L (136-145) [address] (607)- - Potassium 3.7 mmol/L (3.6-5.2) Chloride 108 mmol/L (100-108) Co2 22 mmol/L (22-31) Anion Gap 9 mmol/L (7-16) Urea Nitrogen 11 mg/dL (7-24) Creatinine 0.68 mg/dL (0.60-1.00) BUN/Creat Ratio 16.2 RATIO (10.0-20.0) Glucose 113 mg/dL High (70-99) Calcium 8.8 mg/dL (8.4-10.2) Total Protein 7.4 g/dL (6.4-8.2) Albumin 4.1 g/dL (3.5-4.6) Globulin 3.3 g/dL (2.7-4.3) Alb/Glob Ratio 1.2 RATIO Alkaline Phosphatase 139 U/L High (45-117) Bilirubin,Total 0.5 mg/dL (0.0-1.0) Ast (Sgot) 12 U/L (11-39) Alt (SGPT) 25 U/L (12-78) GFR >60 ml/min/1.73m2 (>59) GFR ( Amer) >60 ml/min/1.73m2 (>59) GFR Interpretation <SEE NOTE> 1 Hemoglobin A1c 06/13/2019 [facility] Hemoglobin A1c @ 4.9 % (4.0-6.0) 2 [address] (836)- - Est Average Glucose 94 mg/dL Lipid 06/13/2019 [facility] Cholesterol @ 169 mg/dL (0-200) [address] (643)- - Triglyceride @ 103 mg/dL (30-200) HDL Cholesterol @ 35 mg/dL Low (>40) 3 Chol/HDL Ratio 4.8 RATIO 4 LDL Chol (Calc) 113 mg/dL (<130) 5 Laboratory 06/13/2019 [facility] TSH,Ultrasensitive @ 1.540 (0.360- 4.170) test finding Christian STARR mIU/L (707)- - 25 Hydroxy Vit D @ 17 ng/mL Low (31-100) 6 Free Thyroxine @ 0.85 ng/dL (0.76-1.46) 1 NORMAL KIDNEY FUNCTION OR MILD DISEASE - GFR >OR= 60 CHRONIC KIDNEY DISEASE - GFR 15 - 59 RENAL FAILURE - GFR <15 Est. GFR calculation based on the MDRD study equation, which assumes a steady state for creatinine. Est. GFR should not be used for medication dosing. 2 Performed using [employer] immunoassay. Care must be taken when interpreting HbA1c results in patients with a hemoglobin variant or decreased erythrocyte lifespan. Values 5.7 - 6.4% suggest prediabetes. Values >=6.5% are diagnostic for diabetes. REFERENCE: DIABETES CARE 2018: 41(S13-S27). 3 PER NCEP ATP III GUIDELINES: RESULTS LOWER THAN 40 MG/DL ARE SUGGESTIVE OF INCREASED RISK FOR CORONARY ARTERY DISEASE. RESULTS > OR = TO 60 MG/DL ARE CONSIDERED A NEGATIVE RISK FACTOR. 4 INTERPRETATION OF CHOL-HDL RATIO CHD RISK FEMALE MALE VERY HIGH >8.3 >14.3 HIGH 5.6- 8.3 6.7- 14.3 AVERAGE 3.7- 5.6 4.0- 6.7 BELOW AVERAGE 2.5- 3.7 2.7- 4.0 PROTECTED <2.5 <2.7 5 PER NCEP ATP III GUIDELINES: OPTIMAL < 100 NEAR OPTIMAL 100 - 129 BORDERLINE HIGH 130 - 159 HIGH 160 - 189 VERY HIGH > 189 6 A REVIEW OF THE LITERATURE SUGGESTS THE FOLLOWING RANGES FOR THE CLASSIFICATION OF 25-OH VITAMIN D STATUS: VITAMIN D STATUS 25-OH VITAMIN D DEFICIENCY <20 NG/ML INSUFFICIENCY 20-30 NG/ML SUFFICIENCY 31 - 100 NG/ML TOXICITY > 100 NG/ML A PEDIATRIC REFERENCE RANGE HAS NOT BEEN ESTABLISHED USING THIS METHOD. Procedures Description No Information Available Medical Devices Description No Information Available Encounters Type Date Location Provider Dx Diagnosis Office Visit 08/21/2019 [facility] Sravanthi Siu L20.9 Atopic dermatitis, 9:15a MObedDObed unspecified J30.9 Allergic rhinitis, unspecified R73.01 Impaired fasting glucose E55.9 Vitamin D deficiency, unspecified F17.210 Nicotine dependence, cigarettes, uncomplicated E66.9 Obesity, unspecified R53.83 Other fatigue F41.9 Anxiety disorder, unspecified Office Visit 07/18/2019 10:30a [facility] Sravanthi Siu L20.9 Atopic Clarita henderson M.D. unspecified J30.9 Allergic rhinitis, unspecified R73.01 Impaired fasting glucose E55.9 Vitamin D deficiency, unspecified F17.210 Nicotine dependence, cigarettes, uncomplicated E66.9 Obesity, unspecified R53.83 Other fatigue F41.9 Anxiety disorder, unspecified Office Visit 06/13/2019 10:30a [facility] Sravanthi Siu L20.9 Atopic Clarita henderson M.D. unspecified J30.9 Allergic rhinitis, unspecified R73.01 Impaired fasting glucose E55.9 Vitamin D deficiency, unspecified F17.210 Nicotine dependence, cigarettes, uncomplicated E66.9 Obesity, unspecified R53.83 Other fatigue F41.9 Anxiety disorder, unspecified Office Visit 03/24/2019 10:00a [facility] Vignesh Cee, F17.210 Nicotine dependence, N.P. cigarettes, uncomplicated E66.9 Obesity, unspecified E55.9 Vitamin D deficiency, unspecified R53.83 Other fatigue R73.01 Impaired fasting glucose F41.9 Anxiety disorder, unspecified Z23 Encounter for immunization Z13.89 Encounter for screening for other disorder Z68.30 Body mass index (BMI) 30.0-30.9, adult Assessments Date Code Description Provider 08/21/2019 L20.9 Atopic dermatitis, unspecified Sravanthi Siu M.D. 08/21/2019 J30.9 Allergic rhinitis, unspecified Sravanthi Siu M.D. 08/21/2019 R73.01 Impaired fasting glucose Sravanthi Siu M.D. 08/21/2019 E55.9 Vitamin D deficiency, unspecified Sravanthi Siu M.D. 08/21/2019 F17.210 Nicotine dependence, cigarettes, Sravanthi Siu M.D. uncomplicated 08/21/2019 E66.9 Obesity, unspecified Sravanthi Siu M.D. 08/21/2019 R53.83 Other fatigue Sravanthi Siu M.D. 08/21/2019 F41.9 Anxiety disorder, unspecified Sravanthi Siu M.D. 07/18/2019 L20.9 Atopic dermatitis, unspecified Sravanthi Siu M.D. 07/18/2019 J30.9 Allergic rhinitis, unspecified SalbadorSravanthi M.D. 07/18/2019 R73.01 Impaired fasting glucose Sravanthi Siu M.D. 07/18/2019 E55.9 Vitamin D deficiency, unspecified Sravanthi Siu M.D. 07/18/2019 F17.210 Nicotine dependence, cigarettes, Sravanthi Siu M.D. uncomplicated 07/18/2019 E66.9 Obesity, unspecified SalbadorSravanthi M.D. 07/18/2019 R53.83 Other fatigue Sravanthi Siu M.D. 07/18/2019 F41.9 Anxiety disorder, unspecified Sravanthi Siu M.D. 06/13/2019 L20.9 Atopic dermatitis, unspecified Sravanthi Siu M.D. 06/13/2019 J30.9 Allergic rhinitis, unspecified SalbadorSravanthi M.D. 06/13/2019 R73.01 Impaired fasting glucose Sravanthi Siu M.D. 06/13/2019 E55.9 Vitamin D deficiency, unspecified Sravanthi Siu M.D. 06/13/2019 F17.210 Nicotine dependence, cigarettes, Sravanthi Siu M.D. uncomplicated 06/13/2019 E66.9 Obesity, unspecified SalbadorSravanthi M.D. 06/13/2019 R53.83 Other fatigue Sravanthi Siu M.D. 06/13/2019 F41.9 Anxiety disorder, unspecified SalbadorSravanthi M.D. 03/24/2019 F17.210 Nicotine dependence, cigarettes, Vignesh Cee, N.P. uncomplicated 03/24/2019 E66.9 Obesity, unspecified Vignesh Cee, N.P. 03/24/2019 E55.9 Vitamin D deficiency, unspecified Vignesh Cee, N.P. 03/24/2019 R53.83 Other fatigue Vignesh Cee N.P. 03/24/2019 R73.01 Impaired fasting glucose Vignesh Cee N.P. 03/24/2019 F41.9 Anxiety disorder, unspecified Vignesh Cee N.P. 03/24/2019 Z23 Encounter for immunization Vignesh Cee N.P. 03/24/2019 Z13.89 Encounter for screening for other disorder Vignesh Cee N.P. 03/24/2019 Z68.30 Body mass index (BMI) 30.0-30.9, adult Vignesh Cee N.P. Plan of Treatment 08/21/2019 - Sravanthi Siu M.D.L20.9 Atopic dermatitis, unspecifiedComments: SKIN CARE INSTRUCTIONS EUCERIN CREAM OR BABY OIL 2-3 APPLICATION PER DAYUSE MOISTURIZING SOAPAVOID PROLONGED WATER EXPOSUREAVOID USING HOT WATER IN VCOMMMN59.9 Allergic rhinitis, unspecifiedComments:INCREASE PO FLUID USE ANTIHISTAMINE PRN SECOND HAND SMOKING AVOIDANCE SMOKING ILOSLGVFEL00.01 Impaired fasting glucoseComments:F/U HGAICFS QAC AN HS PRNLOW GLUCOSE DIETE55.9 Vitamin D deficiency, unspecifiedComments:INCREASE EXPOSURE TO SUNREVIEW OF DIETF17.210 Nicotine dependence, cigarettes, uncomplicatedComments:SMOKING CESSATION [id number] Obesity, unspecifiedComments:WT LOSS COUNCELLINGEXERCISEDIET COUNCILLING DUR CHECKED HANDOUT ON DIET GIVEN TO PT WITH [id number] Other fatigueComments:INCRFEASE PO FLUIDCOUNCELLING AND REASSURANCE RESTF41.9 Anxiety disorder, unspecifiedComments:COUNCELLING AND REASSURANCE RELAXATION TECHNIQUES DISCUSSEDCOUNSELED RE: STRESSORS IN LIFE AVOID ALLENERGY/HIGH CAFFEINE DRINKS Functional Status Functional Condition Comment Date Status .None Active Mental Status Description No Information Available Referrals Description No Information Available
[2019-08-29 20:26] VITALS: BP 141/80
--- NOTE | 2019-08-29 20:38 | UC ---
Shoulder Pain HPI - HPI Summary HPI Summary: 34 yo female slipped an fell on outstretch left arm 3 days ago unable to abduct shoulder >90 pain prox humerus no neck pain - History of Current Complaint Chief Complaint: UCUpperExtremity Stated Complaint: S/P FALL, LEFT ARM INJURY Time Seen by Provider: 08/29/19 20:26 Hx Obtained From: Patient Hx Last Menstrual Period: 08/29/19 Onset/Duration: Sudden Onset Timing: Constant Severity Initially: Severe Severity Currently: Moderate Location Of Pain: Is Diffuse Pain Intensity: 5 Pain Scale Used: 0-10 Numeric Character: Dull, Aching Aggravating Factor(s): Movement, Lifting, Flexion, Internal Rotation, External Rotation Alleviating Factor(s): Rest Associated Signs And Symptoms: Positive: Negative Related History: Dominant Hand Right Torso: 1 - pain here/tender - Allergies/Home Medications Allergies/Adverse Reactions: Allergies Allergy/AdvReac Type Severity Reaction Status Date / Time No Known Allergies Allergy Verified 08/29/19 20:21 Home Medications: Home Medications Acetaminophen [Tylenol Extra Strength] 1 tab PO ONCE 08/29/19 [History Confirmed 08/29/19] PMH/Surg Hx/FS Hx/Imm Hx Previously Healthy: Yes Other History Of: Negative For: Anticoagulant Therapy - Surgical History Surgical History: Yes Surgery Procedure, Year, and Place: Appendectomy, DENTAL EXTRACTIONS - Family History Known Family History: Positive: Unknown - Pt is adopted - Social History Alcohol Use: None Substance Use Type: None Smoking Status (MU): Light Every Day Tobacco Smoker Type: Cigarettes Amount Used/How Often: 1 pack every 3 days Length of Time of Smoking/Using Tobacco: started at age 15 Have You Smoked in the Last Year: Yes Household Exposure Type: Cigarettes - Immunization History Most Recent Influenza Vaccination: 04/01/15 Most Recent Tetanus Shot: 07/01/15 Most Recent Pneumonia Vaccination: never Review of Systems All Other Systems Reviewed And Are Negative: Yes Constitutional: Positive: Negative Skin: Positive: Negative Eyes: Positive: Negative ENT: Positive: Negative Respiratory: Positive: Negative Cardiovascular: Positive: Negative Gastrointestinal: Positive: Negative Genitourinary: Positive: Negative Motor: Positive: Negative Neurovascular: Positive: Negative Musculoskeletal: Positive: Arthralgia Neurological/Mental Status: Positive: Negative Psychological: Positive: Negative Physical Exam Triage Information Reviewed: Yes Appearance: Well-Appearing, No Pain Distress, Well-Nourished Vital Signs: Initial Vital Signs Temp 97.8 F 08/29/19 20:22 Pulse 99 08/29/19 20:22 Resp 17 08/29/19 20:22 BP 141/80 08/29/19 20:22 Pulse Ox 98 08/29/19 20:22 Vital Signs Reviewed: Yes Eyes: Positive: Conjunctiva Clear ENT: Positive: Hearing grossly normal, Uvula midline. Negative: Nasal congestion, Nasal drainage, Tonsillar swelling, Tonsillar exudate, Trismus, Muffled voice, Hoarse voice, Sinus tenderness Dental Exam: Normal Neck: Positive: Supple, Nontender, No Lymphadenopathy Respiratory: Positive: Lungs clear, Normal breath sounds, No respiratory distress Cardiovascular: Positive: RRR, No Murmur Abdomen Description: Positive: Nontender, No Organomegaly Bowel Sounds: Positive: Present Musculoskeletal: Positive: ROM Limited @ - left shoulder: unable to abduct > 90 degrees/limitied int, ext rotation, elbow and wrist exams normal Neurological: Positive: Alert Psychological Exam: Normal Skin Exam: Normal Diagnostics - Radiology No standard instances Radiology Interpretation Completed By: ED Physician Summary of Radiographic Findings: no fx or dislocation Shoulder Course/Dx - Course Course Of Treatment: advise she may have a rotator cuff injury advised ortho follow up - Differential Dx/Diagnosis Provider Diagnosis: Injury of left shoulder Discharge ED - Sign-Out/Discharge Documenting (check all that apply): Patient Departure All imaging exams completed and their final reports reviewed: No - Discharge Plan Condition: Stable Disposition: HOME Patient Education Materials: Shoulder Sprain (ED) Referrals: Darrian Owens MD [Medical Doctor] - As Soon As Possible Additional Instructions: sling ibuprofen ice - Billing Disposition and Condition Condition: STABLE Disposition: Home
--- NOTE | 2019-08-30 08:47 | UC ---
- Progress Note Progress Note: xray report left shoulder: IMPRESSION: NO EVIDENCE FOR FRACTURE. Course/Dx - Diagnoses Provider Diagnoses: Injury of left shoulder Discharge ED - Sign-Out/Discharge Documenting (check all that apply): Patient Departure All imaging exams completed and their final reports reviewed: Yes - Discharge Plan Condition: Stable Disposition: HOME Patient Education Materials: Shoulder Sprain (ED) Referrals: Darrian Owens MD [Medical Doctor] - As Soon As Possible Additional Instructions: sling ibuprofen ice - Billing Disposition and Condition Condition: STABLE Disposition: Home
== END 2019-08-29 20:57 | disposition home or self-care (01) ==
LOC: UCCORT 19:55
DX: S49.92XA Unspecified injury of left shoulder and upper arm, initial encounter (principal); W01.0XXA Fall on same level from slipping, tripping and stumbling without subsequent striking against object, initial encounter; Y92.9 Unspecified place or not applicable; F17.210 Nicotine dependence, cigarettes, uncomplicated
CPT/HCPCS: 99212; G0463